=== PATIENT | female | born 1995 | race Caucasian/White ===

== ENCOUNTER → 2020-04-03 | Outpatient (CLI) | payer OTHER ==
[~2020-04-03] MED LIST: GADOTERATE 7.5 MMOL/15ML VIAL. IVP ONE; LEVO1TAB37 PO; LISI-517 PO; METF500T16 PO
--- NOTE | 2020-04-03 11:32 | KCIC ---
EXAMINATION: MRI BRAIN WO+W with detailed images of the pituitary gland Date: 04/03/2020 8:45 AM History: ELEVATED PROLACTIN LEVEL. Pt is on oral control, some breast milk production. 18cc Cla riscan / History: Abnormal periods after suspected miscarriage 01/2020. Elevated prolactin. Technique: Multiplanar, multisequence MR imaging of the brain and pituitary was performed with and wi thout intravenous contrast (including dynamic coronal enhanced pituitary imaging). 18 cc of Clarisca n contrast was given intravenously. Comparison: None. Findings: The pituitary and sella are normal. No enhancing sellar or suprasellar mass. The infundibulum is midl ine. The optic chiasm and orbits are normal. The cavernous sinus and cavernous carotid arteries are n ormal. No acute infarction. No acute or chronic hemorrhage. The ventricles are normal in size and position w ithout hydrocephalus. The scalp and calvarium are normal. No Chiari malformation. The visualized upper cervical spine is no rmal. Normal signal voids are demonstrated within the carotid arteries and basilar artery. IMPRESSION: Normal pituitary gland. No sellar or suprasellar mass. Electronically signed by: Silas Bower MD (04/03/2020 11:29 AM) [id number]
== END ==
LOC: KCIC MRI 08:42
PROVIDERS: ATTEND Obstetrics & Gynecology
DX: R79.89 Other specified abnormal findings of blood chemistry (principal)
CPT/HCPCS: 70553; 82565; A9575